=== PATIENT | male | born 1960 | race Caucasian/White ===

== ENCOUNTER 2017-09-15 00:18 | Emergency (ER) | payer MEDICAID ==
[~2017-09-15] VITALS: Ht 170.2 cm; Wt 62.8 kg
[2017-09-15 00:20] VITALS: BP 137/71
== END 2017-09-15 02:09 | disposition home or self-care (01) ==
LOC: ED 00:55 → EDBD 00:55 → ED 02:09
DX: F15.129 Other stimulant abuse with intoxication, unspecified (principal)
CPT/HCPCS: 99283

== ENCOUNTER 2017-09-17 04:47 | Emergency (ER) | payer MEDICAID ==
[~2017-09-17] VITALS: Ht 185.4 cm; Wt 70.0 kg
[2017-09-17 04:48] VITALS: BP 108/64
[2017-09-17] MEDS ORDERED: MUPIROCIN OINT 2%, 22GM TP ONE (06:00)
== END 2017-09-17 06:57 | disposition home or self-care (01) ==
LOC: ED 06:47
DX: L03.113 Cellulitis of right upper limb (principal); Z59.0 Homelessness
CPT/HCPCS: 99283